=== PATIENT | male | born 1995 | race Two or more races ===

== ENCOUNTER 2021-03-04 00:34 | Emergency (ER) | payer OTHER, SELFPAY ==
[2021-03-04 00:56] VITALS: BP 135/77; PULSE 76; RESP 18; TEMP 36.3; O2SAT 98
--- NOTE | 2021-03-04 01:43 | ED.EXTPRO ---
HPI - Extremity Problem General Chief complaint: Extremity Problem Stated complaint: Ingrown toe nail Time Seen by Provider: 03/04/21 01:33 Source: patient Mode of arrival: ambulatory Limitations: no limitations History of Present Illness HPI Narrative: patient comes to emergency room complaining of left-sided toe pain. Patient states the patient stopped the toe a few weeks ago, he was seen by his PCP, started on appointment antibiotic and also p.o. antibiotic. Patient states that he re-injured his foot again recently. Patient now has an ingrown toenail. Patient denies fever chills Related Data Allergies Allergy/AdvReac Type Severity Reaction Status Date / Time sulfamethoxazole Allergy Hives Verified 03/04/21 01:00 [From Bactrim] trimethoprim [From Bactrim] Allergy Hives Verified 03/04/21 01:00 Review of Systems Review of Systems: Constitutional : No Weight loss, No Fever, No Chills, No Night Sweats, No Fatigue, No Malaise ENT/Mouth : No Hearing loss, No Ear Pain, No Nasal Congestion, No Sinus Pain, No Hoarseness, No sore throat, No Rhinorrhea, No Swallowing Difficulty Eyes: No Eye Pain, No Swelling, No Redness, No Foreign Body, No Discharge, No Vision Changes Cardiovascular : No Chest Pain, No SOB, No Dyspnea on Exertion, No Orthopnea, No Edema, No Palpitations Respiratory : No Cough, No Sputum, No Wheezing, No Smoke Exposure, No Dyspnea Gastrointestinal : No Nausea, No Vomiting, No Diarrhea, No Constipation, No abdominal Pain, No Hematochezia, No Melena Genitourinary : no irregular bleeding, No Dysuria, No Urinary Frequency, No Hematuria, No Urinary Incontinence, No Urgency, No Flank Pain, No Urinary Flow Changes, No Hesitancy Musculoskeletal : No joint pain, No Myalgias, No Joint Swelling Skin : ingrown toenail on the left great toe Neuro : No Weakness, No Numbness, No Paresthesias, No Loss of Consciousness, No Dizziness, No Headache Psych : No Anxiety/Panic, No Depression, No SI/HI/AH/VH, No Social Issues, Heme/Lymph: No Bruising, No Bleeding,No Lymphadenopathy Endocrine : No Polyuria, No Polydipsia, No Temperature Intolerance PMFSH Social History Social History Advance Directives: No Advance Directives Information Provided: No Physical Exam Vital Signs: Vital Signs: Last Vital Signs Temp 97.3 F 03/04/21 00:56 Pulse 76 03/04/21 00:56 Resp 18 03/04/21 00:56 BP 135/77 03/04/21 00:56 Pulse Ox 98 03/04/21 00:56 Body Mass Index 30.0 Appearance: Alert. Oriented X3. No acute distress. Eyes: Pupils equal, round and reactive to light. ENT: Pharynx normal. Neck: Normal inspection. Neck supple. No lymph nodes noted. No crepitus CVS: Normal heart rate and rhythm. Pulses normal. Normal S1 and S2 Respiratory: No respiratory distress. Breath sounds normal. No Wheezing. No rales Abdomen: Soft and nontender. No rigidity. No distention. good BS x4 Skin: Skin warm and dry. ingrown toenail in the left great toe, small amount of soft tissue protruding over the toenail Extremities: No lower extremity edema. No lower extremity edema. No Lacerations. No Rash Neuro: Oriented X 3. No motor deficit. No sensory deficit. Moving all extermities. No slurred speech. Course Course Course Narrative: patient received nerve block, the corner of the toenail was removed, small amount of pus drained. Patient tolerated well the procedure Discharge Plan Discharge Clinical Impression: Ingrowing toenail of left foot Patient Disposition: Home, Self-Care Instructions: Ingrown Nail (ED) Additional Instructions: Please follow-up with your primary care physician tomorrow. If you have any worsening or new symptoms, please return to the emergency room or call 911 Stand Alone Forms: Work/School Release
[2021-03-04] MEDS: Lidocaine HCl 2 % MPF 5 ML VIAL 10 ML INFILTRATI (02:36)
== END 2021-03-04 02:42 | disposition home or self-care (01) ==
PROVIDERS: Emergency Provider Emergency Medicine; PCP Internal Medicine
DX: L60.0 Ingrowing nail (principal)
CPT/HCPCS: 11765; 99283; 99284